=== PATIENT | male | born 1980 | race Caucasian/White ===

== ENCOUNTER 2016-04-25 11:24 | Emergency (ER) | payer OTHER ==
[~2016-04-25] VITALS: Ht 170.2 cm; Wt 139.0 kg
[~2016-04-25 11:24] MED LIST: ACET500C5 PO; ALBU18HF INHALATION; ASPI81TA3 PO; ATOR20TA38 PO; CLOT15CR4 TOP; CYCL-319 PO; HYDR-906 PO; IBUP-1542 PO; LANT3I SC; METF850T PO
[2016-04-25 11:48] VITALS: Ht 170.2 cm; Wt 139.0 kg
[2016-04-25] MEDS ORDERED: IBUPROFEN 800 MG TAB PO ONE (13:00)
[2016-04-25 13:49] LABS: URINE BLOOD (Dip) POC Negative (NEGATIVE)
[2016-04-25] MEDS ORDERED: IBUP800T25 PO (14:03)
[2016-04-25] MEDS ORDERED: CLOT30CR24 TOP (14:03)
[2016-04-25] MEDS ORDERED: FLUC150T17 PO (14:03)
--- NOTE | 2016-04-25 14:09 | ERD ---
ER Documentation Chief Complaint Date/Time DATE: 04/25/16 TIME: 14:07 Chief Complaint headache,pain on right side of the body,penile blister,wants check for std HPI This 35-year-old male complains of irritation of his foreskin and penis worsening over last week. He has a history of diabetes and recurrent fungal infections by history. He is here with his son who has been seen for chest contusion and decided to check himself in for his general complaint. he has an additional complaint of a bitemporal and frontal headache for last week. He is requesting STD testing as well. He has mild dysuria but no discharge. Denies fevers, vomiting, abdominal pain. ROS All systems reviewed and are negative except as per history of present illness. Medications Home Meds Active Scripts Ibuprofen* (Motrin*) 800 Mg Tab, 800 MG PO Q6, #20 TAB Prov:NAIMA SKELTON MD 04/25/16 Clotrimazole* (Clotrimazole* AF) 1% - 30 Gm Cream.gm., 1 APPLIC TOP BID for 10 Days, TUB Prov:NAIMA SKELTON MD 04/25/16 Fluconazole* (Diflucan*) 150 Mg Tablet, 150 MG PO ONCE, #1 TAB Prov:NAIMA SKELTON MD 04/25/16 Cyclobenzaprine Hcl* (Cyclobenzaprine Hcl*) 10 Mg Tablet, 10 MG PO TID, #15 TAB Prov:SHAW BERRY NP 01/26/16 Hydrocodone/Acetaminophen ([place] 5-325 Tablet) 1 Each Tablet, 1 TAB PO Q6H Y for PAIN, #20 TAB Prov:SHAW BERRY NP 01/26/16 Ibuprofen* (Motrin*) 600 Mg Tab, 600 MG PO Q6H Y for PAIN AND OR ELEVATED TEMP, #30 TAB Prov:SHAW BERRY NP 01/26/16 Clotrimazole-Betamet Diprop* (Lotrisone*) 45 Gm Cream.gm., 1 APPLIC TOP BID, #1 TUB Prov:TAHIR MATT MD 07/08/15 Albuterol Sulfate* (Ventolin HFA*) 18 Gm Hfa.aer.ad, 2 PUFF INHALATION Q4H, #1 INHALER Prov:JUDD MCKINNEY 04/28/15 Acetaminophen* (Tylophen*) 500 Mg Capsule, 500 MG PO Q6H Y for PAIN for 7 Days, TAB Prov:LO LEE PA-C 09/15/14 Reported Medications Aspirin* (Aspirin* Chew) 81 Mg Tab.chew, 81 MG PO DAILY, TAB.CHEW 07/08/15 Atorvastatin Calcium* (Atorvastatin Calcium*) 20 Mg Tablet, 20 MG PO HS, TAB PATIENT NOT COMPLIANT 08/17/14 Insulin Glargine* (Lantus*) 100 Unit/Ml Soln, 25 UNIT SC QAM, EA 08/17/14 Metformin Hcl* (Metformin Hcl*) 850 Mg Tablet, 850 MG PO TID, TAB PATIENT NOT COMMPLIANT 08/17/14 Allergies Allergies: Coded Allergies: No Known Allergy (Unverified , 07/08/15) PMhx/Soc History of Surgery: No Anesthesia Reaction: No Hx Neurological Disorder: No Hx Respiratory Disorders: No Hx Cardiac Disorders: No Hx Psychiatric Problems: No Hx Alcohol Use: No Hx Substance Use: No Hx Tobacco Use: No Physical Exam Vitals Vital Signs Date Time Temp Pulse Resp B/P Pulse Ox O2 Delivery O2 Flow Rate FiO2 04/25/16 11:48 98.2 112 18 142/79 98 Physical Exam Const: [] Alert, [id number]. Head: Atraumatic. Reproducible headache by palpation of the bitemporal and frontal area. Also palpation of the paraspinous muscles of the cervical spine. No deformities or tenderness. Eyes: Normal Conjunctiva ENT: Normal External Ears, Nose and Mouth. Neck: Full range of motion..~ No meningismus. Resp: Clear to auscultation bilaterally Cardio: Regular rate and rhythm, no murmurs Abd: Soft, non tender, non distended. Normal bowel sounds Skin: No petechiae or rashes Back: No midline or flank tenderness Ext: No cyanosis, or edema Neur: Awake and alert Psych: Normal Mood and Affect Results 24 hrs Laboratory Tests Test 04/25/16 13:41 04/25/16 13:51 Bedside Glucose 240mg/dL Bedside Urine Blood Negative Bedside Urine Glucose (UA) 0.50% Bedside Urine Ketones (LAB) Trace Bedside Urine Leukocyte Esterase (L Negative Bedside Urine Nitrite (LAB) Negative Bedside Urine Protein (LAB) Negative Bedside Urine pH (LAB) 6.0 Current Medications Medications (Trade) Dose Ordered Sig/Nasima Route PRN Reason Start Time Stop Time Status Last Admin Dose Admin Ibuprofen (Motrin) 800 mg ONCE ONCE PO 04/25/16 13:00 04/25/16 13:01 DC 04/25/16 13:35 Procedures/MDM Accu-Chek is 240. Urine shows slight glucose and trace ketones. Patient was given ibuprofen 800 mg by mouth. Patient presents with signs and symptoms of balanitis. He will be called with abnormal STD testing and urine was sent for gonorrhea chlamydia. Patient has signs and symptoms of likely tension headache. He does no symptoms to suggest ketoacidosis, emergent causes of headache such as mass-effect, bleeding. We discharged home instructions to drink plenty of fluids. He will be given a prescription of Diflucan and Lotrimin and ibuprofen. Patient should return for vomiting, abdominal pain, new worsening symptoms with primary doctor this week. The patient was stable with no new complaints during the ER course. Clinically, there is no current evidence to suggest meningitis, sepsis, acute abdomen, pneumonia, acute coronary syndrome, pulmonary embolism, or any other emergent condition appearing to require further evaluation or hospitalization. The patient should certainly return for any new or worsening symptoms per the aftercare instructions. They should otherwise follow-up with her primary care doctor for reevaluation this week. Departure Diagnosis: Primary Impression: Diabetes Diabetes mellitus type: type 2 Diabetes mellitus complication status: with unspecified complications Diabetes mellitus rat exterminator insulin use: without rat exterminator use Qualified Code: E11.8 - Type 2 diabetes mellitus with complication, without long-term current use of insulin Additional Impressions: Balanitis Headache Headache type: unspecified Headache chronicity pattern: unspecified pattern Intractability: not intractable Qualified Code: R51 - Nonintractable headache, unspecified chronicity pattern, unspecified headache type Condition: Stable Patient Instructions: Balanitis, DIABETES, General Info, Headache, Unspecified Additional Instructions: Likely tension headache. Blood sugar 240. Drink plenty of fluids at home. Recheck for new or worsening symptoms or primary care doctor. You will be called with abnormal STD results. NAIMA SKELTON MD Apr 25, 2016 14:09
== END 2016-04-25 14:38 | disposition home or self-care (01) ==
LOC: FTE 11:24
DX: E11.8 Type 2 diabetes mellitus with unspecified complications (principal); N48.1 Balanitis; R51 Headache; Z79.4 Long term (current) use of insulin; Z79.82 Long term (current) use of aspirin; Z79.84 Long term (current) use of oral hypoglycemic drugs
CPT/HCPCS: 81003; 82962; 87591; Z7502; Z7610; 99283

== ENCOUNTER 2016-05-13 08:17 | Emergency (ER) | payer OTHER ==
[~2016-05-13] VITALS: Ht 175.3 cm; Wt 138.6 kg
[~2016-05-13 08:17] MED LIST changes: +CLOT30CR24 TOP; +FLUC150T17 PO; +IBUP800T25 PO
[2016-05-13 08:19] VITALS: Ht 175.3 cm; Wt 138.6 kg
[2016-05-13] MEDS ORDERED: IBUPROFEN 600 MG TAB PO ONE (09:30)
--- NOTE | 2016-05-13 10:39 | RADRPT ---
PROCEDURE: XR Knee. CLINICAL INDICATION: Right knee pain. TECHNIQUE: 3 views of the right knee were obtained. The images reviewed on a PACS workstation. COMPARISON: None. FINDINGS: The bones appear intact, with no evidence of fracture, erosion, demineralization, or dislocation. Th e alignment of the femorotibial and patellofemoral joints appears normal. No joint space narrowing i s seen. No evidence of effusion. No soft tissue swelling is present. IMPRESSION: Unremarkable examination of the right knee. RPTAT: [facility] Physician Kole Date Time Electronically viewed and signed by Physician Kole on 05/13/2016 10:39 /
--- NOTE | 2016-05-13 10:53 | RADRPT ---
PROCEDURE: Right hand series CLINICAL INDICATION: Right hand pain. TECHNIQUE: AP, lateral, and oblique views of the right hand were obtained COMPARISON: None FINDINGS: No acute fracture, dislocation, or articular abnormalities are seen. The soft tissue structures are intact. IMPRESSION: Unremarkable right hand series. RPTAT: [facility]PN[facility] Physician Kole Date Time Electronically viewed and signed by Steven Hill Physician on 05/13/2016 10:53 /
[2016-05-13] MEDS ORDERED: IBUP-1542 PO (11:18)
--- NOTE | 2016-05-13 11:18 | ERD ---
ER Documentation Chief Complaint Date/Time DATE: 05/13/16 TIME: 11:07 Chief Complaint right leg and knee pain s/p fall yesterday, bruise on knee and hands HPI Patient is a 35-year-old male with a past medical history of DM, hyperlipidemia who presents to the emergency department with right knee pain and right hand pain status post ground-level fall yesterday. Patient states that this fall occurred while at work at approximately 7 PM. 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 Patient was running after the individual when he fell to the ground. Patient states he scraped his bilateral knees on the cement. Patient reporting right knee pain. Patient states the pain is constant. Patient has difficulty ambulating on his right lower extremity. Patient also complaining of right second digit pain. Patient has some difficulty with bending his finger. Patient is right-hand dominant. Patient denies any previous injury. Patient has not taken any medication for his pain. Patient denies any neck or back pain. Patient denies any saddle anesthesia, urinary incontinence, stool incontinence. ROS All systems reviewed and are negative except as per history of present illness. Medications Home Meds Active Scripts Ibuprofen* (Motrin*) 600 Mg Tab, 600 MG PO Q6, #30 TAB Prov:SVEN URIOSTEGUI PA-C 05/13/16 Ibuprofen* (Motrin*) 800 Mg Tab, 800 MG PO Q6, #20 TAB Prov:NAIMA SKELTON MD 04/25/16 Clotrimazole* (Clotrimazole* AF) 1% - 30 Gm Cream.gm., 1 APPLIC TOP BID for 10 Days, TUB Prov:NAIMA SKELTON MD 04/25/16 Fluconazole* (Diflucan*) 150 Mg Tablet, 150 MG PO ONCE, #1 TAB Prov:NAIMA SKELTON MD 04/25/16 Cyclobenzaprine Hcl* (Cyclobenzaprine Hcl*) 10 Mg Tablet, 10 MG PO TID, #15 TAB Prov:SHAW BERRY NP 01/26/16 Hydrocodone/Acetaminophen ([place] 5-325 Tablet) 1 Each Tablet, 1 TAB PO Q6H Y for PAIN, #20 TAB Prov:SHAW BERRY NP 01/26/16 Ibuprofen* (Motrin*) 600 Mg Tab, 600 MG PO Q6H Y for PAIN AND OR ELEVATED TEMP, #30 TAB Prov:SHAW BERRY NP 01/26/16 Clotrimazole-Betamet Diprop* (Lotrisone*) 45 Gm Cream.gm., 1 APPLIC TOP BID, #1 TUB Prov:TAHIR MATT MD 07/08/15 Albuterol Sulfate* (Ventolin HFA*) 18 Gm Hfa.aer.ad, 2 PUFF INHALATION Q4H, #1 INHALER Prov:JUDD MCKINNEY 04/28/15 Acetaminophen* (Tylophen*) 500 Mg Capsule, 500 MG PO Q6H Y for PAIN for 7 Days, TAB Prov:LO LEE PA-C 09/15/14 Reported Medications Aspirin* (Aspirin* Chew) 81 Mg Tab.chew, 81 MG PO DAILY, TAB.CHEW 07/08/15 Atorvastatin Calcium* (Atorvastatin Calcium*) 20 Mg Tablet, 20 MG PO HS, TAB PATIENT NOT COMPLIANT 08/17/14 Insulin Glargine* (Lantus*) 100 Unit/Ml Soln, 25 UNIT SC QAM, EA 08/17/14 Metformin Hcl* (Metformin Hcl*) 850 Mg Tablet, 850 MG PO TID, TAB PATIENT NOT COMMPLIANT 08/17/14 Allergies Allergies: Coded Allergies: No Known Allergy (Unverified , 07/08/15) PMhx/Soc History of Surgery: No Anesthesia Reaction: No Hx Neurological Disorder: No Hx Respiratory Disorders: No Hx Cardiac Disorders: No Hx Psychiatric Problems: No Hx Miscellaneous Medical Probl: Yes (DM) Hx Alcohol Use: No Hx Substance Use: No Hx Tobacco Use: No Smoking Status: Never smoker Physical Exam Vitals Vital Signs Date Time Temp Pulse Resp B/P Pulse Ox O2 Delivery O2 Flow Rate FiO2 05/13/16 08:19 97.9 84 18 138/71 97 Physical Exam GENERAL: Well-developed, well-nourished, obese male. Appears in no acute distress. HEAD: Normocephalic, atraumatic. EYES: Pupils are equally reactive bilaterally. EOMs grossly intact. No conjunctival erythema. ENT: Moist mucous membranes. No uvula deviation. No kissing tonsils. NECK: Supple. No meningismus. Normal range of motion of the neck. LUNG: Clear to auscultation bilaterally. No rhonchi, wheezing, rales or coarse breath sounds. HEART: Regular rate and rhythm. No murmurs, rubs or gallops. BACK: No midline tenderness. EXTREMITIES: Equal pulses bilaterally. No peripheral clubbing, cyanosis or edema. No unilateral leg swelling. NEUROLOGIC: Alert and oriented. Moving all four extremities without any difficulty. Normal speech. Steady gait. SKIN: Normal color. Warm and dry. No rashes or lesions. RIGHT KNEE: No deformity, erythema, ecchymosis or swelling. Superficial abrasion noted to anterior aspect. Decreased ROM secondary to pain. Tender to palpation of anterior knee. Non tender to palpation of thigh, tib/fib. Normal ROM of ankle. Sensation intact to light touch. Neurovascularly intact. (Able to plantarflex, dorsiflex, leyla foot, invert foot, raise big toe.) 2+ DP and DT pulses. RIGHT HAND: No obvious deformity. + Ecchymosis and swelling of the 2nd digit. Skin intact. Full ROM of all fingers, wrist and elbow. Sensation intact to light touch. Neurovascularly intact. (Able to give thumbs up, make an ok sign, cross digits 2 and 3, thumb to pinky opposition. 2+ RP.) No snuffbox tenderness. right finger Results 24 hrs Current Medications Medications (Trade) Dose Ordered Sig/Nasima Route PRN Reason Start Time Stop Time Status Last Admin Dose Admin Ibuprofen (Motrin) 600 mg ONCE ONCE PO 05/13/16 09:30 05/13/16 09:31 DC 05/13/16 09:25 Procedures/MDM ED COURSE: The patient was stable throughout ED course. I kept the patient and/or family informed of laboratory and diagnostic imaging results throughout the ED course. DIAGNOSTIC IMAGING: Read by radiologist. DIAGNOSTIC IMAGING REPORT Patient: ARTEMIO FLORES : 1980 Age: 35 Sex: M MR #: [id number] DOS: 05/13/16 09 Ordering MD: SVEN URIOSTEGUI PA-C Location: [facility] Room/Bed: PROCEDURE: Right hand series CLINICAL INDICATION: Right hand pain. TECHNIQUE: AP, lateral, and oblique views of the right hand were obtained COMPARISON: None FINDINGS: No acute fracture, dislocation, or articular abnormalities are seen. The soft tissue structures are intact. IMPRESSION: Unremarkable right hand series. RPTAT: HPNM Physician Kole Date Time Electronically viewed and signed by Physician Kole on 05/13/2016 10 :53 / CC: SVEN URIOSTEGUI PA-C DIAGNOSTIC IMAGING REPORT Patient: ARTEMIO FLORES : 1980 Age: 35 Sex: M MR #: [id number] DOS: 05/13/16 0916 Ordering MD: SVEN URIOSTEGUI PA-C Location: [facility] Room/Bed: PROCEDURE: XR Knee. CLINICAL INDICATION: Right knee pain. TECHNIQUE: 3 views of the right knee were obtained. The images reviewed on a PACS workstation. COMPARISON: None. FINDINGS: The bones appear intact, with no evidence of fracture, erosion, demineralization , or dislocation. The alignment of the femorotibial and patellofemoral joints appears normal. No joint space narrowing is seen. No evidence of effusion. No soft tissue swelling is present. IMPRESSION: Unremarkable examination of the right knee. RPTAT: [facility] Physician Kole Date Time Electronically viewed and signed by Physician Kole on 05/13/2016 10 :39 / CC: SVEN URIOSTEGUI PA-C PROCEDURES: SPLINT APPLICATION: The patient was verbally consented at bedside prior to splint application. Patient was explained the risks, benefits and alternatives to this procedure. The patient was neurovascularly intact prior to and status post application of the splint. The patient tolerated the procedure well with no complications. Splint type: knee immobilizer Extremity: R knee Indication: unable to rule out ligament or tendon injuries MEDICATIONS GIVEN: Ibuprofen Patient tolerated medication well with no adverse reactions. Patient reported improvement in pain. MEDICAL DECISION MAKING: This is a 35-year-old male who presents with right-sided knee pain and second digit finger pain of his right hand status post trauma level fall. Patient states that he was running at work after someone who stole something when he fell to the ground. Patient denied any head trauma. Vital signs were reviewed. Patient was afebrile. XR imaging of the patient's right knee was negative. X-ray imaging of the patient's right hand was negative. Patient was placed in a knee immobilizer and provided with crutches. Given these findings, the patient's presentation is most consistent with finger contusion and knee contusion. have a much lower clinical concern for dislocation , carpal fracture, scaphoid fracture, metacarpal fracture, phalanx fracture, trigger finger, jammed finger, subungual hematoma, finger avulsion injury, femur fracture, patella fracture, septic joint, bursitis, DVT or compartment syndrome. Unable to rule out any ligament or tendon injuries at this time. Low suspicion for spinal fracture or cauda equina syndrome. PRESCRIPTIONS: Ibuprofen DISCHARGE: At this time, patient is stable for discharge and outpatient management. RICE therapy and ROM exercises were advised to avoid stiffness. I have instructed the patient to follow-up with his/her primary care physician in 1-2 days. I have discussed with the patient the possibility of needing to see an sales and in home delivery specialist for further workup and imaging if the pain persists. I have instructed the patient to promptly return to the ER for any new or worsening symptoms including increased pain, swelling, redness, warmth or fever. The patient and/or family expressed understanding of and agreement with this plan. All questions were answered. Home care instructions were provided. Departure Diagnosis: Primary Impression: Contusion, knee Encounter type: initial encounter Laterality: right Qualified Code: S80.01XA - Contusion of right knee, initial encounter Additional Impression: Finger contusion Encounter type: initial encounter Finger: index finger Damage to nail status: without damage Laterality: right Qualified Code: S60.021A - Contusion of right index finger without damage to nail, initial encounter Condition: Stable Patient Instructions: Knee Pain, Uncertain Cause Referrals: [facility] Additional Instructions: Patient placed in knee immobilizer. Patient will need to follow-up with an sales and in home delivery specialist and/or obtain MRI imaging for his knee pain. Unable to rule out any ligament or tendon injuries at this time. Patient advised to return emergency department for any new worsening symptoms including but not limited to severe pain, swelling, fever, chills, chest pain, shortness breath or loss of consciousness. SVEN URIOSTEGUI PA-C May 13, 2016 11:18 including but not limited to severe pain, swelling, fever, chills, chest pain, shortness breath or loss of consciousness. SVEN URIOSTEGUI PA-C May 13, 2016 11:18
== END 2016-05-13 11:55 | disposition home or self-care (01) ==
LOC: FTE 08:17
DX: S80.01XA Contusion of right knee, initial encounter (principal); S60.021A Contusion of right index finger without damage to nail, initial encounter; E11.9 Type 2 diabetes mellitus without complications; W18.39XA Other fall on same level, initial encounter; Y92.89 Other specified places as the place of occurrence of the external cause; Z79.4 Long term (current) use of insulin; Z79.84 Long term (current) use of oral hypoglycemic drugs; Z79.82 Long term (current) use of aspirin
CPT/HCPCS: 29505; 73130; 73562; Z7502; Z7610

== ENCOUNTER 2016-07-25 19:21 | Emergency (ER) | payer OTHER ==
[~2016-07-25] VITALS: Ht 177.8 cm; Wt 139.5 kg
[2016-07-25 19:29] VITALS: Ht 177.8 cm; Wt 139.5 kg
[2016-07-25] MEDS ORDERED: FAMO-18 PO (20:54)
[2016-07-25] MEDS ORDERED: LORA-186 PO (20:54)
--- NOTE | 2016-07-25 21:21 | ERD ---
ER Documentation Chief Complaint Date/Time DATE: 07/25/16 TIME: 21:03 Chief Complaint cough x 1 month, sore throat, back pain HPI This is a 35-year-old obese male with a history of diabetes type 2 on insulin presenting to the emergency department complaining of episodes of difficulty swallowing and breathing for the past year. Patient states that it feels as if he will get a lot of saliva in his mouth and will be difficult for him to breathe. He denies sore throat or fevers.Patient states that this also occurs during the night. Patient states that these episodes are for less than a minute and occurred past year. Patient states that he has not been evaluated by this by his physician, he denies any chest pain or shortness breath right now. He rates this moderate in severity ROS All systems reviewed and are negative except as per history of present illness. Medications Home Meds Active Scripts Famotidine* (Pepcid*) 20 Mg Tablet, 20 MG PO DAILY, #30 TAB Prov:LO LEE PA-C 07/25/16 Loratadine* (Claritin*) 10 Mg Tablet, 10 MG PO DAILY, #30 TAB Prov:LO LEE PA-C 07/25/16 Ibuprofen* (Motrin*) 600 Mg Tab, 600 MG PO Q6, #30 TAB Prov:SVEN URIOSTEGUI PA-C 05/13/16 Ibuprofen* (Motrin*) 800 Mg Tab, 800 MG PO Q6, #20 TAB Prov:NAIMA SKELTON MD 04/25/16 Clotrimazole* (Clotrimazole* AF) 1% - 30 Gm Cream.gm., 1 APPLIC TOP BID for 10 Days, TUB Prov:NAIMA SKELTON MD 04/25/16 Fluconazole* (Diflucan*) 150 Mg Tablet, 150 MG PO ONCE, #1 TAB Prov:NAIMA SKELTON MD 04/25/16 Cyclobenzaprine Hcl* (Cyclobenzaprine Hcl*) 10 Mg Tablet, 10 MG PO TID, #15 TAB Prov:SHAW BERRY NP 01/26/16 Hydrocodone/Acetaminophen ([place] 5-325 Tablet) 1 Each Tablet, 1 TAB PO Q6H Y for PAIN, #20 TAB Prov:SHAW BERRY NP 01/26/16 Ibuprofen* (Motrin*) 600 Mg Tab, 600 MG PO Q6H Y for PAIN AND OR ELEVATED TEMP, #30 TAB Prov:SHAW BERRY NP 01/26/16 Clotrimazole-Betamet Diprop* (Lotrisone*) 45 Gm Cream.gm., 1 APPLIC TOP BID, #1 TUB Prov:TAHIR MATT MD 07/08/15 Albuterol Sulfate* (Ventolin HFA*) 18 Gm Hfa.aer.ad, 2 PUFF INHALATION Q4H, #1 INHALER Prov:JUDD MCKINNEY 04/28/15 Acetaminophen* (Tylophen*) 500 Mg Capsule, 500 MG PO Q6H Y for PAIN for 7 Days, TAB Prov:LO LEE PA-C 09/15/14 Reported Medications Aspirin* (Aspirin* Chew) 81 Mg Tab.chew, 81 MG PO DAILY, TAB.CHEW 07/08/15 Atorvastatin Calcium* (Atorvastatin Calcium*) 20 Mg Tablet, 20 MG PO HS, TAB PATIENT NOT COMPLIANT 08/17/14 Insulin Glargine* (Lantus*) 100 Unit/Ml Soln, 25 UNIT SC QAM, EA 08/17/14 Metformin Hcl* (Metformin Hcl*) 850 Mg Tablet, 850 MG PO TID, TAB PATIENT NOT COMMPLIANT 08/17/14 Allergies Allergies: Coded Allergies: No Known Allergy (Unverified , 07/08/15) PMhx/Soc Medical and Surgical Hx: pt denies Surgical Hx History of Surgery: No Anesthesia Reaction: No Hx Neurological Disorder: No Hx Respiratory Disorders: No Hx Cardiac Disorders: Yes (high cholesterol) Hx Psychiatric Problems: No Hx Miscellaneous Medical Probl: Yes (dm) Hx Alcohol Use: No Hx Substance Use: No Hx Tobacco Use: Yes Smoking Status: Current some day smoker Physical Exam Vitals Vital Signs Date Time Temp Pulse Resp B/P Pulse Ox O2 Delivery O2 Flow Rate FiO2 07/25/16 19:29 98.3 95 20 139/78 99 Physical Exam Const: Well-developed well-nourished no acute distress Head: Atraumatic , patient is obese with a full neck Eyes: Normal Conjunctiva ENT: Normal External Ears, Nose and Mouth. Neck: Full range of motion..~ No meningismus. Resp: Clear to auscultation bilaterally Cardio: Regular rate and rhythm, no murmurs Abd: Soft, non tender, non distended. Normal bowel sounds Skin: No petechiae or rashes Back: No midline or flank tenderness Ext: No cyanosis, or edema Neur: Awake and alert Psych: Normal Mood and Affect Procedures/MDM This is a 35-year-old male presenting to the emergency department complaining of episodes where he has difficulty swallowing with shortness of breath that occur for the past year. Differentials included obstructive sleep apnea, gastritis, allergic rhinitis, obesity. On examination,patient's airways are intact. Lungs were clear to auscultation, vitals and pulse ox normal, oropharynx clear. CXR did not show any evidence of infiltrates, pneumothorax, or pleural effusion. Patient is suitable for discharge home to follow-up with his primary care physician for further evaluation and management including sleep studies for sleep apnea and possibly an endoscopy and thyroid studies. Trial prescription for Claritin and Pepcid was provided. Discussed weight loss. Discussed to follow up wit PCP tomorrow, discussed return to the ER for any worseni/ng signs or symptoms. Patient understands and agrees with this plan. Stable discharge for home Departure Diagnosis: Primary Impression: Shortness of breath Condition: Fair Patient Instructions: Coping with Shortness of Breath: Controlling Stress, Sleep Apnea, Sleep Apnea, Obstructive (Adult) Additional Instructions: FOLLOW UP WITH YOUR PRIMARY CARE PHYSICIAN TOMORROW.Return to this facility if you are not improving as expected. Take all medicines as directed. Return to this facility if you are not improving as expected. LO LEE PA-C July 25, 2016 21:20
--- NOTE | 2016-07-25 23:55 | RADRPT ---
PROCEDURE: XR Chest. CLINICAL INDICATION: Dyspnea and cardiac palpitations. TECHNIQUE: Single frontal view of the chest. COMPARISON: None. FINDINGS: Hypoinflated lungs and patient body habitus accentuate cardiac silhouette and pulmonary vascular mar kings. The cardiomediastinal silhouette is within normal limits. The lungs are clear. No signs of pleural f luid or pneumothorax are seen. The osseous structures and soft tissues are unremarkable. IMPRESSION: No evidence for active cardiopulmonary disease. RPTAT: [facility] Physician Lynsey Date Time Electronically viewed and signed by Charity Ramsey Physician on 07/25/2016 23:55 RS/
[2016-07-26 00:20] VITALS: BP 121/70; PULSE 82; RESP 20; TEMP 98.1
== END 2016-07-26 00:23 | disposition home or self-care (01) ==
LOC: FTE 19:21
DX: R06.02 Shortness of breath (principal); E11.9 Type 2 diabetes mellitus without complications; F17.210 Nicotine dependence, cigarettes, uncomplicated; Z79.4 Long term (current) use of insulin; Z79.82 Long term (current) use of aspirin; Z79.84 Long term (current) use of oral hypoglycemic drugs
CPT/HCPCS: 71010; Z7502

== ENCOUNTER 2016-11-27 23:38 | Emergency (ER) | payer OTHER ==
[~2016-11-27] VITALS: Ht 182.9 cm; Wt 139.5 kg
[~2016-11-27 23:38] MED LIST changes: +FAMO-96 PO; +LORA-186 PO
[2016-11-27 23:42] VITALS: Ht 182.9 cm; Wt 139.5 kg
[2016-11-28] MEDS ORDERED: TETRACAINE 0.5% 4 ML OPH LEFT EYE SCH (02:00)
[2016-11-28] MEDS ORDERED: FLUORESCEIN STRIP LEFT EYE ONE (02:00)
--- NOTE | 2016-11-28 02:16 | ERD ---
ER Documentation Chief Complaint Date/Time DATE: 11/28/16 TIME: 02:13 Chief Complaint left eye pain, sarah kids throw "dirt" on left eye 6 hours ago HPI 36 year-old male presents here in emergency department for complaints of left eye pain, patient states that some kids to return on his left eye 6 hours ago, felt a foreign body in the left I complaints of burning pain, 4/10 scale, no better or worse with anything. Patient denies eye discharge. Patient did not take any medications to help with symptoms. Patient denies any vision changes. ROS All systems reviewed and are negative except as per history of present illness. Medications Home Meds Active Scripts Naphazoline-Pheniramine* (Visine-A*) 15 Ml Drops, 2 DROP LEFT EYE Q4H Y for RED EYES, #1 BOT Prov:SHAW BERRY NP 11/28/16 Polymyxin B Sulfate-TMP* (Polymyxin B-TMP Eye Drops*) 10 Ml Drops, 1 DROP LEFT EYE QID for 7 Days, EA Prov:SHAW BERRY NP 11/28/16 Famotidine* (Pepcid*) 20 Mg Tablet, 20 MG PO DAILY, #30 TAB Prov:LO LEEC 07/25/16 Loratadine* (Claritin*) 10 Mg Tablet, 10 MG PO DAILY, #30 TAB Prov:LO LEEC 07/25/16 Ibuprofen* (Motrin*) 600 Mg Tab, 600 MG PO Q6, #30 TAB Prov:SVEN URIOSTEGUIC 05/13/16 Ibuprofen* (Motrin*) 800 Mg Tab, 800 MG PO Q6, #20 TAB Prov:NAIMA SKELTON MD 04/25/16 Clotrimazole* (Clotrimazole* AF) 1% - 30 Gm Cream.gm., 1 APPLIC TOP BID for 10 Days, TUB Prov:NAIMA SKELTON MD 04/25/16 Fluconazole* (Diflucan*) 150 Mg Tablet, 150 MG PO ONCE, #1 TAB Prov:NAIMA SKELTON MD 04/25/16 Cyclobenzaprine Hcl* (Cyclobenzaprine Hcl*) 10 Mg Tablet, 10 MG PO TID, #15 TAB Prov:SHAW BERRY [employer]ER 01/26/16 Hydrocodone/Acetaminophen ([place] 5-325 Tablet) 1 Each Tablet, 1 TAB PO Q6H Y for PAIN, #20 TAB Prov:SHAW BERRY [employer] 01/26/16 Ibuprofen* (Motrin*) 600 Mg Tab, 600 MG PO Q6H Y for PAIN AND OR ELEVATED TEMP, #30 TAB Prov:SHAW BERRY [employer] ATT[employer]ER 01/26/16 Clotrimazole-Betamet Diprop* (Lotrisone*) 45 Gm Cream.gm., 1 APPLIC TOP BID, #1 TUB Prov:TAHIR MATT MD 07/08/15 Albuterol Sulfate* (Ventolin HFA*) 18 Gm Hfa.aer.ad, 2 PUFF INHALATION Q4H, #1 INHALER Prov:JUDD MCKINNEY 04/28/15 Acetaminophen* (Tylophen*) 500 Mg Capsule, 500 MG PO Q6H Y for PAIN for 7 Days, TAB Prov:LO LEE PA-C 09/15/14 Reported Medications Aspirin* (Aspirin* Chew) 81 Mg Tab.chew, 81 MG PO DAILY, TAB.CHEW 07/08/15 Atorvastatin Calcium* (Atorvastatin Calcium*) 20 Mg Tablet, 20 MG PO HS, TAB PATIENT NOT COMPLIANT 08/17/14 Insulin Glargine* (Lantus*) 100 Unit/Ml Soln, 25 UNIT SC QAM, EA 08/17/14 Metformin Hcl* (Metformin Hcl*) 850 Mg Tablet, 850 MG PO TID, TAB PATIENT NOT COMMPLIANT 08/17/14 Allergies Allergies: Coded Allergies: No Known Allergy (Unverified , 07/08/15) PMhx/Soc Medical and Surgical Hx: pt denies Surgical Hx History of Surgery: No Anesthesia Reaction: No Hx Neurological Disorder: No Hx Respiratory Disorders: No Hx Cardiac Disorders: Yes (high cholesterol) Hx Psychiatric Problems: No Hx Miscellaneous Medical Probl: Yes (dm) Hx Alcohol Use: No Hx Substance Use: No Hx Tobacco Use: Yes Smoking Status: Never smoker FmHx Family History: No coronary disease, No diabetes, No other Physical Exam Vitals Vital Signs Date Time Temp Pulse Resp B/P Pulse Ox O2 Delivery O2 Flow Rate FiO2 11/27/16 23:42 97.6 97 20 126/90 100 Physical Exam GENERAL: The patient is well developed and appropriate for usual state of health, in no apparent distress. HEENT: Atraumatic.left eye conjunctiva noted to be erythematous.right eye conjunctiva normal. Bilateral eyes are PERRL EOM intact. Ears: Normal tympanic membrane, no erythema or bulging. No ear canal swelling. No ear discharge. Nose : normal nasal turbinates, no erythema or swelling. Normal nasal discharge. Throat: oropharynx clear. No tonsillar swelling or tonsillar exudates. No lymphadenopathy. CHEST: Clear to auscultation bilaterally. There are no rales, wheezes or rhonchi. HEART: Regular rate and rhythm. No murmurs, clicks, rubs or gallops. No S3 or S4. ABDOMEN: Soft, nontender and nondistended. Good bowel sounds. No rebound or guarding. No gross peritonitis. No gross organomegaly or masses. No Bourne sign or McBurney point tenderness. BACK: No midline or flank tenderness. EXTREMITIES: Equal pulses bilaterally. There is no peripheral clubbing, cyanosis or edema. No focal swelling or erythema. Full range of motion. Grossly neurovascularly intact. NEURO: Alert and oriented. Cranial nerves 2-12 intact. Motor strength in all 4 extremities with 5/5 strength. Sensation grossly intact. Normal speech and gait. SKIN: There is no apparent rash or petechia. The skin is warm and dry. HEMATOLOGIC AND LYMPHATIC: There is no evidence of excessive bruising or lymphedema. No gross cervical, axillary, or inguinal lymphadenopathy. Results 24 hrs Current Medications Medications (Trade) Dose Ordered Sig/Nasima Route PRN Reason Start Time Stop Time Status Last Admin Dose Admin Tetracaine HCl (Tetracaine 0.5% Steri-Unit Portia) 1 drop ONCE LEFT EYE 11/28/16 02:00 Fluorescein Sodium (Kikhb-G-Tsmyn) 1 strip ONCE ONCE LEFT EYE 11/28/16 02:00 11/28/16 02:01 DC Irrigating Solution (Eye Wash) 1 applic ONCE ONCE LEFT EYE 11/28/16 02:30 11/28/16 02:31 Procedure Note: After obtaining informed consent, the left eye was numbed using tetracaine and stained using fluorescein dye. After staining the eye, A Wood's lamp was used to evaluate the eye. There is no foreign body noted in the eye. No corneal abrasions noted. noted conjunctival abrasion.Patient tolerated procedure well.patient left eye was lavaged with an eyewash afterwards. Procedures/MDM Medical decision making: Patient symptoms is likely consistent with a conjunctival abrasion. No corneal abrasion noted. No foreign body noted. No vision changes. No symptoms of any other eye emergencies at this time. No Rhonda sign.Prescription was given for Polytrim eye drops, Naphcon, is advised to follow-up with primary care doctor in 2 days, see eye doctor as necessary if symptoms does notget better within 2 days. Patient is advised to return to emergency department for worsening symptoms. Disposition: Home. Stable. Departure Diagnosis: Primary Impression: Abrasion of conjunctiva, left Encounter type: initial encounter Qualified Code: S05.02XA - Abrasion of left conjunctiva, initial encounter Condition: Stable SHAW BERRY NP Nov 28, 2016 02:16
[2016-11-28] MEDS ORDERED: POLY10DR19 LEFT EYE (02:21)
[2016-11-28] MEDS ORDERED: NAPH15DR22 LEFT EYE (02:21)
[2016-11-28] MEDS ORDERED: OPHTHALMIC IRRIG SOLUTION 120 ML LEFT EYE ONE (02:30)
[2016-11-28 02:53] VITALS: BP 125/84; PULSE 72; RESP 20; TEMP 98.3
== END 2016-11-28 02:54 | disposition home or self-care (01) ==
LOC: FTE 23:38
DX: S05.02XA Injury of conjunctiva and corneal abrasion without foreign body, left eye, initial encounter (principal); E11.9 Type 2 diabetes mellitus without complications; W20.8XXA Other cause of strike by thrown, projected or falling object, initial encounter; Y92.9 Unspecified place or not applicable; Z79.4 Long term (current) use of insulin; Z79.82 Long term (current) use of aspirin; Z79.84 Long term (current) use of oral hypoglycemic drugs
CPT/HCPCS: Z7502; Z7610; 99284

== ENCOUNTER 2017-03-10 13:59 | Emergency (ER) | END 2017-03-10 19:30 | disposition left against medical advice (07) ==